=== PATIENT | male | born 1945 ===

== ENCOUNTER 2019-05-25 09:27 | Day surgery (SDC) | payer MEDICARE, BC ==
[~2019-05-25] VITALS: Ht 180.3 cm; Wt 88.5 kg
[~2019-05-25 09:27] MED LIST: ceFAZolin sod 1 GM in NS 55 ML IVPB ONE
[2019-05-25] MEDS ORDERED: Bacitracin Oint 15gm Tube TOPIC ONE (10:26)
[2019-05-25] MEDS ORDERED: Lidocaine 1% 10mg/ml/Epi 0.005mg/ml 30ml vial INJ ONE (10:27)
[2019-05-25] MEDS ORDERED: LR 1000ml 1,000 ML IVLG SCH (10:41)
--- NOTE | 2019-05-25 10:41 | Anethesia Preoperative Eval ---
Anesthesia Pre-op PMH/ROS General Date of Evaluation: May 25, 2019 Anesthesiologist: Lalo ASA Score: ASA 3 Mallampati Score Class I : Soft palate, uvula, fauces, pillars visible Class II: Soft palate, uvula, fauces visible Class III: Soft palate, base of uvula visible Class IV: Only hard plate visible Mallampati Classification: Class III Surgeon: Gigi Diagnosis: Right cheek tumor Surgical Procedure: Excision right cheek tumor Anesthesia History: none Family History: no anesthesia problems Allergies: Coded Allergies: ADHESIVE TAPE (Verified Allergy, Intermediate, rash; slight skin irritation, 05/25/19) Medications: see eMAR Patient NPO?: Yes NPO Date: May 24, 2019 NPO Time: 22:00 Past Medical History Cardiovascular: Reports: HTN, CAD, RI, arrhythmia - afib-on , dc'ed on tuesday, h/o vfib/vtach/[place]ud[place] cardiac arrest in 2016, AICD in place, last time its defibrillated was 4 years ago; Denies: valve dz, other Pulmonary: Denies: asthma, COPD, LINDA, other Gastrointestinal/Genitourinary: Denies: GERD, CRI, ESRD, other Neurologic/Psychiatric: Denies: dementia, CVA, depression/anxiety, TIA, other Endocrine: Denies: DM, hypothyroidism, steroids, other HEENT: Denies: cataract (L), cataract (R), glaucoma, KIANA (L), KIANA (R), other Hematology/Immune: Denies: anemia, DVT, bleeding disorder, other Musculoskeletal/Integumentary: Reports: OA; Denies: RA, DJD, DDD, edema, other PSxH Narrative: right IHR Anesthesia Pre-op Phys. Exam Physician Exam see chart Constitutional: NAD Cardiovascular: RRR Respiratory: CTA Airway Exam Mallampati Score: Class III MO: full ROM: full Anesthesia Pre-op A/P Labs see chart Studies Pre-op Studies: EKG - sr, CXR - atherosclerosis, pacemaker/aicd in place, lungs wnl Risk Assessment & Plan Assessment: ASA III Plan: MAC Status Change Before Surgery: No Pre-Antibiotics Drug: Ancef 1g Given Within 1 Hr of Incision: Yes Christine De La O MD May 25, 2019 10:41
[2019-05-25] MEDS ORDERED: NS Irrig 1000ml IRRIG ONE ×2 (10:44→11:55)
[2019-05-25 10:45] VITALS: BP 125/60
[2019-05-25] MEDS ORDERED: DiphenhydrAMINE 50mg/ml Inj IVP PRN (10:45)
[2019-05-25] MEDS ORDERED: METOPROLOL SUCC50 MG ORAL (11:26)
[2019-05-25] MEDS ORDERED: ELIQUIS5 MG PO (11:27)
--- NOTE | 2019-05-25 11:28 | Pre-Procedure Note/Attestation ---
Pre-Procedure Note/Attestation Complete Prior to Procedure Planned Procedure: right Procedure Narrative: right cheek enlarging tumor Indications for Procedure Pre-Operative Diagnosis: right cheek tumor Attestation I attest that I discussed the nature of the procedure; its benefits; risks and complications; and alternatives (and the risks and benefits of such alternatives ), prior to the procedure, with the patient (or the patient's legal event representative). I attest that, if there was a reasonable possibility of needing a blood transfusion, the patient (or the patient's legal event representative) was given the [facility] standardized written summary, pursuant to the [employer] Blood Safety Act ([place] Health and Safety Code # 1645, as amended). I attest that I re-evaluated the patient just prior to the surgery and that there has been no change in the patient's H&P, except as documented below: Jake Yu MD May 25, 2019 11:28
--- NOTE | 2019-05-25 11:31 | Brief Operative Note ---
Immediate Post Operative Note Operative Note Pre-op Diagnosis: right cheek tumor Procedure: right cheek enlarging tumor with bilateral advancement flap reconstruction Post-op Diagnosis: same as pre-op Findings: consistent w/pre-op dx studies Surgeon: Jake Yu M.D. Anesthesiologist: Messi Anesthesia: local Specimen: yes Complications: none Condition: stable Fluids: ringers lactate Estimated Blood Loss: minimal Drains: none Packing: none Implant(s) used?: No Jake Yu MD May 25, 2019 11:31
[2019-05-25] MEDS ORDERED: Lidocaine 1% 10mg/ml/EPI 0.01mg/ml 50ml INJ ONE (11:44)
[2019-05-25 13:28] VITALS: BP 147/59
[2019-05-25 13:30] VITALS: BP 147/59
--- NOTE | 2019-05-25 13:34 | Immediate Post-Op Evaluation ---
Immediate Post-Op Evalulation Immediate Post-Op Evalulation Procedure: right cheek mass excision Date of Evaluation: May 25, 2019 Time of Evaluation: 13:33 IV Fluids: 500 Blood Products: 0 Estimated Blood Loss: min Urinary Output: 0 Blood Pressure Systolic: 147 Blood Pressure Diastolic: 59 Pulse Rate: 67 Respiratory Rate: 16 O2 Sat by Pulse Oximetry: 98 Temperature (Fahrenheit): 97.7 Pain Score (1-10): 0 Nausea: No Vomiting: No Complications 0 Patient Status: awake, reacts, patent, none Hydration Status: adequate Drug: Ancef 1g Given Within 1 Hr of Incision: Yes Christine De La O MD May 25, 2019 13:34
[2019-05-25 13:35] VITALS: BP 147/59
--- NOTE | 2019-05-25 13:35 | 48 Hour Post Anesthesia Eval ---
Post Anesthesia Evaluation Procedure: right cheek mass excision Date of Evaluation: May 25, 2019 Airway: patent Nausea: No Vomiting: No Hydration Status: adequate Cardiopulmonary Status: at baseline Mental Status/LOC: patient returned to baseline Post-Anesthesia Complications: 0 Follow-up care needed: ready to discharge Christine De La O MD May 25, 2019 13:35
[2019-05-25 13:45] VITALS: BP 147/59
[2019-05-25 13:55] VITALS: BP 147/59
--- NOTE | 2019-05-28 03:15 | Operative Note - Dictated ---
DATE OF OPERATION: 05/25/2019 SURGEON: Jake Yu M.D. ANESTHESIOLOGIST: Dr. Gonzalez. ANESTHESIA: Local. PREOPERATIVE DIAGNOSIS: Right large cheek tumor. POSTOPERATIVE DIAGNOSIS: Right large cheek tumor. PROCEDURE: Resection of large right cheek tumor with bilateral advancement flap reconstruction of a 4.5 x 1.75 cm. INDICATIONS FOR SURGERY: The patient is a 73-year-old male, who complains of an enlarging right cheek mass. The patient has been on numerous treatments without improvement and is now being brought to the operating room for resection under local anesthesia. FINDINGS AT SURGERY: Revealed a large mass located in subcutaneous tissues that was fixed to the overlying skin and extended deeply into the underlying tissue. The mass was well capsulated. DESCRIPTION OF PROCEDURE: The patient was brought to the operating room while premedicated and had received preoperative antibiotics. He was placed in supine position on the operating room table. The defibrillator was inactivated. A sterile marking pen was used to outline an elliptical incision around the large right cheek mass. After a Betadine prep, approximately 3 to 4 mL of 1% Xylocaine with 1:100,000 epinephrine were used to inject the area and the patient then prepped and draped in usual sterile fashion. After a suitable period of vasoconstriction, the back of a #15 blade was used to crosshatch the proposed incision site. A #15 blade was then used to make sn incision along the area previously demarcated. Using sharp and blunt dissection, the capsule of the mass was identified. The tumor was then sharply and bluntly dissected from the surrounding tissue and removed from the field of operation with a large elliptical stock of skin attached to the underlying tumor. Examination of the area revealed a large defect, which was smooth showing that the tumor was completely removed. There was minimal bleeding. A persistent bloody ooze was controlled with cautery. Examination of defect was as previously described. The defect was too large to close without undue tension and distortion. Therefore, extensive undermining was performed both anteriorly and posteriorly. All bleeding was controlled with cautery. The defect was then closed with 4-0 plain to the deep tissue as well as the subcutaneous tissue, which was realigned to the area previously crosshatched. This skin incision was then realigned using 5-0 Porlene vertical mattress sutures. A pressure dressing consisting of Betadine ointment, Telfa, fluffs and and clear non adhesive bandage was then secured in place, and the procedure was terminated. The patient tolerated the procedure well and left the operating room in satisfactory condition. ESTIMATED BLOOD LOSS: Negligible. COUNTS: Sponge and needle counts were correct, and his defibrillator was activated at the end of the surgery. Jake Yu M.D. DR: JARROD JOB#: [id number] CC: CAREN
== END 2019-05-25 14:30 | disposition home or self-care (01) ==
LOC: SUR 09:27
DX: L72.0 Epidermal cyst (principal); I25.2 Old myocardial infarction; I11.9 Hypertensive heart disease without heart failure; Z79.01 Long term (current) use of anticoagulants; M19.90 Unspecified osteoarthritis, unspecified site; I70.90 Unspecified atherosclerosis; Z95.810 Presence of automatic (implantable) cardiac defibrillator
CPT/HCPCS: 94003; 94150